=== PATIENT | female | born 1985 | race Caucasian/White ===

== ENCOUNTER 2023-09-30 20:34 | Outpatient (REF) | payer OTHER, SELFPAY ==
[2023-10-04 09:09] LABS: Age Gdln ACOG Testing Note (.); HPV Aptima Negative (Negative); IGP, Aptima HPV, rfx 16/18,45 Note (.)
== END 2023-09-30 20:35 | disposition home or self-care (01) ==
LOC: LAB 20:34
PROVIDERS: Visit Provider Obstetrics & Gynecology
DX: Z01.419 Encounter for gynecological examination (general) (routine) without abnormal findings (principal)
CPT/HCPCS: 87624; G0145

== ENCOUNTER 2024-09-30 15:23 | Outpatient (REF) | payer OTHER, SELFPAY ==
--- OUTSIDE RECORDS SUMMARY | 2024-09-30 15:42 | XMS_ITS | CCD ---
Author Organization [facility] Care Team Providers Care Human Service Worker Name Role Phone SHERI ., DR TINOCO Admitting Unavailable SHERI ., DR TINOCO Attending Unavailable SHERI ., DR TINOCO Admitting Unavailable SHERI ., DR TINOCO Attending Unavailable SHERI ., DR TINOCO Consulting Unavailable Unavailable Primary Care Provider UnavailEARNEST [place] Attending Unavailable Tyler Sharpe MD Primary Care Provider HEIDI NAJERA Attending Unavailable TYLER SHARPE Referring Unavailable TYLER SHARPE Primary Care Unavailable TYLER SHARPE Attending Unavailable TYLER SHARPE Referring Unavailable TYLER SHARPE Primary Care Unavailable Medications Current Medications Medication Drug Class(es) Dates Sig (Normalized) Sig (Original) furosemide 20 mg oral tablet (1 source) Loop Diuretic Start: 09-21-2024 take 1 tablet by mouth once daily as needed furosemide (LASIX) 20 mg tablet Take 1 tablet (20 mg total) by mouth daily as needed (leg swelling). 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 90 tablet 3 06/17/2024 Active Completed/Discontinued Medications Medication Drug Class(es) Dates Sig (Normalized) Sig (Original) semaglutide, weight loss, (WEGOVY) 1 mg/0.5 mL pen injector (5 sources) Start: 07-14-2024 End: 09-15-2024 semaglutide, weight loss, (WEGOVY) 1 mg/0.5 mL pen injector Indications: Weight gain Inject 0.5 mL (1 mg total) under the skin every 7 days. 2 mL 6 07/14/2024 09/15/2024 Discontinued Start: 07-14-2024 semaglutide, w eight loss, (WEGOVY) 1 mg/0.5 mL pen injector Indications: Weight gain Inject 0.5 mL (1 mg total) under the skin every 7 days. 2 mL 6 07/14/2024 Active Problems Active Problems Problem Classification Problem Date Documented Date Episodic/Chronic Administrative/social admission (4 sources) Patient encounter status; Translations: [Exercise counseling] 08-31-2024 Episodic Anxiety disorders (4 sources) Anxiety; Translations: [Anxiety disorder, unspecified] 08-08-2024 Chronic Immunizations and screening for infectious disease (1 source) Encounter for screening for human papillomavirus (HPV); Translations: [ENC SCREENING HUMAN PAPILLOMAVIRUS] Onset: 09-26-2022 Episodic Malaise and fatigue (6 sources) Chronic fatigue syndrome; Translations: [Chronic fatigue syndrome] Onset: 12-31-2019 07-04-2022 Chronic Other nutritional; endocrine; and metabolic disorders (1 source) Body mass index 25-29 - overweight; Translations: [Overweight] 08-31-2024 Episodic Other nutritional; endocrine; and metabolic disorders (1 source) Abnormal weight gain; Translations: [Abnormal weight gain] 08-31-2024 Episodic Other nutritional; endocrine; and metabolic disorders (1 source) Overweight in adulthood with body mass index of 25 or more but less than 30; Translations: [Body mass index (BMI) 25.0-25.9, adult] 08-31-2024 Episodic Other nutritional; endocrine; and metabolic disorders (1 source) Body mass index (BMI) 25.0-25.9, adult; Translations: [Body Mass Index 25.0-25.9, adult] 08-31-2024 Episodic Other nutritional; endocrine; and metabolic disorders (1 source) Overweight; Translations: [Overweight] 08-31-2024 Episodic Other nutritional; endocrine; and metabolic disorders (1 source) Weight increased; Translations: [Abnormal weight gain] 08-31-2024 Episodic Other screening for suspected conditions (not mental disorders or infectious disease) (4 sources) Encounter for screening for malignant neoplasm of cervix; Translations: [ENC SCREENING MALIG NEOPLASM CERV] Onset: 09-24-2022 Episodic Thyroid disorders (10 sources) Hypothyroidism; Translations: [Hypothyroidism, unspecified] Onset: 12-31-2019 07-04-2022 Chronic Unclassified (1 source) Annual Exam Onset: 09-15-2024 Past or Other Problems Problem Classification Problem Date Documented Da te Episodic/Chronic Mood disorders (6 sources) Mood disorders Onset: 05-07-2023 05-07-2023 Nutritional deficiencies (6 sources) Iron deficiency; Translations: [Iron deficiency] Onset: 01-11-2020 07-04-2022 Episodic Other gastrointestinal disorders (6 sources) Constipation; Translations: [Constipation, unspecified] Onset: 12-31-2019 07-04-2022 Episodic Other nutritional; endocrine; and metabolic disorders (2 sources) Abnormal weight gain; Translations: [Abnormal weight gain] Onset: 05-08-2024 08-31-2024 Episodic Other skin disorders (6 sources) Excessive sweating; Translations: [Generalized hyperhidrosis] Onset: 08-14-2021 07-04-2022 Episodic Results Test Name Value Interpretation Reference Range Facil ity PAP ACOG PANEL 2: 30 to 65on 10-02-2022 . . Normal [facility] Comment on above: Result Comment: Performed at: WB Performed By: #### [id number] #### [facility] [address] [place] [address] Dr. Tanmay Lopez Age Gdln ACOG Testing 30-65 [facility] Comment on above: Performed By: #### [id number] #### [facility] [address] [place] [address] Dr. Tanmay Lopez DIAGNOSIS: Comment [facility] Comment on above: Result Comment: NEGATIVE FOR INTRAEPITHE LIAL LESION OR MALIGNANCY. Performed at: WB Performed By: #### [id number] #### [facility] [address] [address] [address] Tanmay Lopez HPV Aptima Negative [facility] Comment on above: Result Comment: This nucleic acid amplif ication test detects fourteen high-risk HPV types (16,18,31,33,35,39,45,51,52,56,58,59,66,68) without differentiation. Performed at: =G Performed By: #### [id number] #### [facility] [address] [place] [address] Dr. Tanmay Lopez HPV Genotype Reflex Comment [facility] Comment on above: Result Comment: Criteria not met, HPV Ge notype not performed. Performed at: WB Performed By: #### [id number] #### [facility] [address] [place] [address] Dr. Tanmay Lopez Methodology: Comment [facility] Comment on above: Result Comment: This liquid based ThinPr ep(R) pap test was screened with the use of an image guided system. Performed at: WB Performed By: #### [id number] #### [facility] [address] [place] [address] Dr. Tanmay Lopez Note: Comment [facility] Comment on above: Result Comment: The Pap smear is a scree karis test designed to aid in the detection of premalignant and malignant conditions of the uterine cervix. It is not a diagnostic procedure and should not be used as the sole means of detecting cervical cancer. Both false-positive and false-negative reports do occur. . Performed at: WB Performed By: #### [id number] #### [facility] [address] [address] [address] Tanmay Lopez Performed by: Comment [facility] Comment on above: Result Comment: Johanna Knutson, Cytotech nologist (ASCP) Performed at: WB Performed By: #### [id number] #### [facility] [address] [place], [place] [address] Dr. Tanmay Lopez Specimen adequacy: Comment [facility] Comment on above: Result Comment: Satisfactory for evaluat ion. Endocervical and/or squamous metaplastic cells (endocervical component) are present. Performed at: WB Performed By: #### [id number] #### [facility] [address] [address] [address] Tanmay Lopez Vital Signs Date Time Vital Sign Value Performing Clinician Faci lity 09-15-2024 15:36-0500 Body height 162 cm Tyler Sharpe MD Work Phone: [facility] 09-15-2024 15:36-0500 Body mass index (BMI) [Ratio] 25.75 kg/m2 Tyler Sharpe MD Work Phone: [facility] 09-15-2024 15:36-0500 Body temperature 98.2 [degF] Tyler Sharpe MD Work Phone: [facility] 09-15-2024 15:36-0500 Body weight 67.59 kg Tyler Sharpe MD Work Phone: [facility] 09-15-2024 15:36-0500 Diastolic blood pressure 71 mm[Hg] Tyler Sharpe MD Work Phone: [facility] 09-15-2024 15:36-0500 Heart rate 80 /min Tyler Sharpe MD Work Phone: [facility] 09-15-2024 15:36-0500 Systolic blood pressure 116 mm[Hg] Tyler Sharpe MD Work Phone: [facility] 08-31-2024 13:25-0500 Body height 160.66 cm [facility] 08-31-2024 13:25-0500 Body mass index (BMI) [Ratio] 25.2 kg/m2 [facility] 08-31-2024 13:25-0500 Body weight 65.03 kg [facility] 08-31-2024 13:25-0500 Diastolic blood pressure 74 mm[Hg] [facility] 08-31-2024 13:25-0500 Heart rate 78 /min [facility] 08-31-2024 13:25-0500 Respiratory rate 16 /min [facility] 08-31-2024 13:25-0500 SaO2% (BldA) [Mass fraction] 98 % [facility] 08-31-2024 13:25-0500 Systolic blood pressure 116 mm[Hg] [facility] Encounters Encounter Date Encounter Type Care Provider Facility Start: 09-21-2024 End: 09-21-2024 Orders Only Tyler Sharpe MD Work Phone: [facility] Start: 09-15-2024 End: 09-15-2024 Patient encounter status Tyler Sharpe MD Work Phone: [facility] Work Phone: Start: 09-15-2024 End: 09-15-2024 Periodic preventive med est patient 40-64yrs Tyler Sharpe MD [facility] Comment on above: Routine general medi rock examination at a health care facility (Primary Dx) Start: 09-15-2024 End: 09-15-2024 ambulatory [facility] Start: 09-15-2024 Encounter for genera l adult medical examination without abnormal findings [facility] Start: 09-09-2024 End: 09-09-2024 Meryl Hernandez MD Work Phone: [facility], A Department of [facility] Start: 09-03-2024 End: 09-03-2024 Refill Tyler Sharpe MD Work Phone: [facility] Comment on above: Anxiety Start: 08-31-2024 End: 09-08-2024 ambulatory Heidi Najera MD Work Phone: [facility] Work Phone: Comment on above: Weight gain Start: 08-31-2024 End: 08-31-2024 Patient encounter procedure [facility] Work Phone: Start: 08-08-2024 End: 08-10-2024 Refill Tyler Sharpe MD Work Phone: [facility] Comment on above: Anxiety Start: 05-08-2024 End: 05-12-2024 ambulatory HEIDI NAJERA [facility] Start: 09-30-2023 End: 09-30-2023 ambulatory EARNEST ZAIDI Not Available Start: 09-09-2023 Chart abstracting Earnest Zaidi DO Work Phone: [facility] Start: 09-24-2022 End: 09-24-[address] EARNEST ZAIDI . Facility:[facility] Start: 12-13-[address] EARNEST ZAIDI . Facili ty:[facility] Procedures Date Procedure Procedure Detail Performing Clinician Start: 05-08-2024 Follow-up visit Follow-up HEIDI NAJERA Start: 05-07-2023 Adult depression screening assessment Tyler Sharpe MD Work Phone: Plan of Treatment Date Care Activity Detail Author Start: 09-15-2025 Adult BMI Screening Adult BMI Screen ing [facility] Start: 09-15-2025 Tobacco Screening Tobacco Screening [facility] Start: 05-08-2025 Adult BMI Screening Adult BMI Screen ing [facility] Start: 05-08-2025 Tobacco Screening Tobacco Screening [facility] Start: 09-15-2024 End: 09-15-2024 Patient encounter procedure 09/15/2024 3:45 PM EST Office Visit [facility] [address] [place] [phone] Tyler Sharpe MD [address] [place] [address], [address] [place] [address] [facility] Start: 05-07-2024 Depression Screening Depression Scre samaraing [facility] Start: 03-29-2024 COVID-19 Vaccine ( season) COVID-19 Vaccine ( season) [facility] Start: 03-29-2024 Influenza vaccination Influenza Vacc ine [facility] Start: 09-30-2023 End: 09-30-2023 Patient encounter procedure 09/30/2023 2:00 PM EST Office Visit [facility] [address] [place] [address] Earnest Zaidi, DO [address] [place] [address] [facility] Start: 03-29-2023 Influenza vaccination Influenza Vacc ine (#1) [facility] Start: 10-08-2013 Screening for malign ant neoplasm of cervix [facility] Start: 10-08-2004 Screening for malign ant neoplasm of cervix Pap Smear [facility] Start: 10-08-2002 DTaP,Tdap and Td Vaccines (1 - Tdap) DTaP,Tdap and Td Vaccines (1 - Tdap) [facility] Start: 10-08-2001 Adult BMI Follow Up Plan Adult BMI Follow Up Plan [place] Immunizations Immunization Date Immunization Notes Care Provider Fa cility 10-21-2020 COVID-19, mRNA, LNP- S, PF, 100mcg/0.5mL Dose Tyler Sharpe MD Work Phone: [facility] 09-21-2020 COVID-19, mRNA, LNP- S, PF, 100mcg/0.5mL Dose Tyler Sharpe MD Work Phone: [facility] Payers Date Payer Category Payer Managed Care Other (unspecified) [employer] [id number] 2021 Unknown [employer] [id number] 2021-Present [address] [place] [address] [id number] 1983 Unknown [id number] 1983 Unknown [id number] 1983 Unknown [id number] 1983 Unknown [id number] 1983 Unknown [id number] 1959 Self-pay [id number] 1961 Unknown [id number] Social History Date Type Detail Facility Start: 09-09-2023 Tobacco smoking status MSIS Smokes tobacco daily [facility] History of tobacco use Cigarette Smoker [facility] Start: 09-09-2023 End: 09-15-2024 Alcohol intake Current drinker of alcohol (finding) [facility] Start: 09-09-2023 Alcohol Comment occasional [facility] Start: 1985 Sex Assigned At Not on file [facility] Start: 09-08-2020 End: 05-08-2024 Gender identity Not on file [facility] Start: 06-02-2021 End: 08-31-2024 Tobacco smoking status NHIS Never smoked tobacco [facility] Start: 06-02-2021 Tobacco use and exposure Smokeless tobacco non-user [facility] Start: 09-08-2020 End: 05-08-2024 History of Social function [facility] Adolescent depressio n screening assessment 0 [facility] Start: 07-04-2022 Alcohol Comment social [facility] Start: 03-03-2015 End: 08-31-2024 Sex Female (finding) [facility] Start: 1985 Sex Assigned At Female F [facility] NEGATED: Highlighted row [facility] Clinical Notes 08-08-2024 to 09-15-2024 Tyler Sharpe MD - 09/15/2024 3:45 PM ESTTelephone Encounter - Clarice Mai - 09/09/2024 11:18 AM ESTTelephone Encounter - Clarice Mai - 09/09/2024 11:18 AM EST Note Date & Type Note Facility 09-15-2024 History of Presen t illness Narrative Subjective Patient ID: Eloisa Lara is a 38 y.o. female. Comes in for wellness. 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 Her thyroid is managed through endocrinology. She has no major concerns today. The following portions of the patient's history were reviewed and updated as appropriate: allergies, current medications, past family history, past medical history, past social history, past surgical history, and problem list. Review of Systems Constitutional: Negative for activity change. She had some weight loss with G LP 1 agonist therapy. She is off of that now and has gained some of that weight back. She still has the heavy sweating at night. HENT: Negative for trouble swallowing and voice change. Eyes: Negative for visual disturbance. Respiratory: Negative for cough and shortness of breath. Cardiovascular: Negative for chest pain and leg swelling. Gastrointestinal: Negative for abdominal pain. Genitourinary: Negative for dysuria. Musculoskeletal: Negative for arthralgias. Neurological: Negative for dizziness, light-headedness and headaches. Psychiatric/Behavioral: She has cut her sertraline down to half the dose and is doing well with that at this time. Objective Physical Exam Constitutional: Comments: She looks well. Her blood pressure is normal. HENT: Right Ear: Tympanic membrane normal. Left Ear: Tympanic membrane normal. Mouth/Throat: Pharynx: Oropharynx is clear. Eyes: General: No scleral icterus. Pupils: Pupils are equal, round, and reactive to light. Neck: Comments: No thyroid enlargement or neck mass Cardiovascular: Rate and Rhythm: Normal rate and regular rhythm. Heart sounds: No murmur heard. Pulmonary: Effort: Pulmonary effort is normal. Breath sounds: Normal breath sounds. Abdominal: General: There is no distension. Palpations: Abdomen is soft. Tenderness: There is no abdominal tenderness. Musculoskeletal: Right lower leg: No edema. Left lower leg: No edema. Neurological: General: No focal deficit present. Mental Status: She is alert. Assessment/Plan Her labs are done through work. Medication reviewed. 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 Routine follow-up annually for wellness. Diagnoses and all orders for this visit: Routine general medical examination at a health care facility documented in this encounter [facility] 09-09-2024 Miscellaneous Notes Formattin g of this note might be different from the original. error documented in this encounter [facility] 09-09-2024 Telephone encount er Note error [facility] 09-03-2024 Miscellaneous Notes Formattin g of this note might be different from the original. Patient doesn't want a 90 day supply at this time. documented in this encounter [facility] 09-03-2024 Telephone encount er Note Patient doesn't want a 90 day supply at this time. [facility] 08-31-2024 Miscellaneous Notes Formattin g of this note might be different from the original. Pt called in stating Zepbound is covered by insurance but is sure she needs prior auth-I did tell her that it may take a couple of weeks for this to process. Pt also asked about semaglutide at [facility] (she has not taking any medications since she last saw you in April). She is asking if she could get a script for either one-she is also aware [facility] is a couple of weeks behind due to high demand. She wants to know since she has not taken anything in a few months, will she need to start at starter dose again? Pt's insurance no longer covers wegovy. Please advise. Pt will schedule appt documented in this encounter [facility] 08-31-2024 Telephone encount er Note Pt called in stating Zepbound is covered by insurance but is sure she needs prior auth-I did tell her that it may take a couple of weeks for this to process. Pt also asked about semaglutide at [facility] (she has not taking any medications since she last saw you in April). She is asking if she could get a script for either one-she is also aware [facility] is a couple of weeks behind due to high demand. She wants to know since she has not taken anything in a few months, will she need to start at starter dose again? Pt's insurance no longer covers wegovy. Please advise. Pt will schedule appt [facility] 08-08-2024 Miscellaneous Notes Formattin g of this note might be different from the original. Refill request documented in this encounter [facility] 08-08-2024 Telephone encount er Note Refill request [facility] Evaluation note Diagnosis Anxiety Anxiety state, unspecified [facility] Diagnosis Onset Date Resolution Status Admit Date Abnormal weight gain acute 2024 12:52pm Anxiety acute August 31, 2024 12:52pm BMI 25.0-25.9,adult acute 2024 12:52pm Dietary surveillance and counseling acute August 31 12:52pm Exercise counseling acute 2024 12:52pm Hypothyroidism acute August 312024 12:52pm Overweight (BMI 25.0-29.9) acute August 31, 2024 12:52pm [facility] Work Phone: Evaluation note* Diagnosis Anxiety Anxiety state, unspecified [facility] Diagnosis Weight gain Other symptoms concerning nutrition, metabolism, and development documented [facility] this [facility]* Diagnosis Routine general medical examination at a health care facility- Primary documented in this [facility] filedocumented in this encounter [facility] on filedocumented in this encounter [facility] SystemInstructionsNot on filedocumented in this encounter [facility] SystemInstructionsNot on filedocumented in this encounter [facility] Summary Purpose Family History Relationship Condition Age at Onset Recorded Date/T breann father Chronic obstructive pulmonary disease Unk nown Asthma Unknown Heart disease Unknown Atrial fibrillation Unknown sister Overweight Unknown Diabetes mellitus Unknown Advance Directives Advance Directive Response Recorded Date/ Time Advance Directives No August 31, 2024 12:50pm Chief Complaint and Reason for Visit Chief Complaint Admit Date Self-[facility] [employer] August 31, 2024 12:52pm Reason for Visit Admit Date Abnormal weight gain August 31, 2024 12:52pm Anxiety August 31, 2024 1 2:52pm BMI 25.0-25.9,adult August 31, 2024 1 2:52pm Dietary surveillance and counseling Febr 2024 12:52pm Exercise counseling August 31, 2024 1 2:52pm Hypothyroidism August 31, 2024 1 2:52pm Overweight (BMI 25.0-29.9) August 31, 2024 12:52pm Additional Source Comments INFORMATION SOURCE (unrecogn ized section and content) DATE CREATED AUTHOR 10/04/2022 [facility] DATE CREATED AUTHOR AUTHOR'S ORGANIZ ATION 10/01/2023 [facility] EPIC DATE CREATED AUTHOR AUTHOR'S ORGANIZ ATION 09/17/2024 [facility] Reason for Visit (unrecogniz ed section and content) Reason Comments Med Refill Reason Comments Med Change Request Reason Onset Date Comments Med Refill 08/31/2024 Reason Onset Date Comments Med Refill 09/09/2024 Reason Comments Annual Exam Care Teams (unrecognized sec tion and content) Human Service Worker Relationship Specialty Start Date End Date Tyler Sharpe MD [address] [place] [address], [address] [place] [address] PCP - General Pediatrics 07/04/22 Team Status: Active Member Role Status Dates Tyler Sharpe MD Primary Care Provider Active Team Status: Inactive Member Role Status Dates Tyler Sharpe MD Primary Care Provider Active Start: August 31, 2024 End: August 31, 2024 Rekha Hopkins DNP Attending Provider Active S tart: August 31, 2024 End: August 31, 2024 Human Service Worker Relationship Specialty Start Date End Date Tyler Sharpe MD [address] [place] [address], [address] [place] [address] PCP - General Pediatrics 07/04/22 Human Service Worker Relationship Specialty Start Date End Date Tyler Sharpe MD [address] [place] [address], [address] [place] [address] PCP - General Pediatrics 07/04/22 Human Service Worker Relationship Specialty Start Date End Date Tyler Sharpe MD [address] [place] [address], [address] [place], [place] [id number] PCP - General Pediatrics 07/04/22 Goals (unrecognized section and content) Goals may be documented in a n alternate section FOR RECORDS PERTAINING TO PATIENTS WHO ARE OR HAVE BEEN ENROLLED IN A CHEMICAL DEPENDENCY/SUBSTANCEABUSE PROGRAM, SOME INFORMATION MAY BE OMITTED. This clinical summary was aggregated from multiple sources. Caution should be exercised in using it in the provision of clinical care. This summary normalizes information from multiple sources, and as a consequence, information in this document may materially change the coding, format and clinical context of patient data. In addition, data may be omitted in some cases. CLINICAL DECISIONS SHOULD BE BASED ON THE PRIMARY CLINICAL RECORDS. [facility] provides no warranty or guarantee of the accuracy or completeness of information in this document.
[2024-10-06 00:07] LABS: Age Gdln ACOG Testing Note (.); HPV Aptima Positive (Negative); HPV Genotype 16 Negative (Negative); HPV Genotype 18,45 Negative (Negative); IGP, Aptima HPV, rfx 16/18,45 Note (.)
== END 2024-09-30 15:24 | disposition home or self-care (01) ==
LOC: LAB 15:23
PROVIDERS: Visit Provider Obstetrics & Gynecology
DX: Z01.419 Encounter for gynecological examination (general) (routine) without abnormal findings (principal)
CPT/HCPCS: 87624; 88175